=== PATIENT | male | born 1990 | race Caucasian/White ===

== ENCOUNTER 2024-05-13 18:00 | Emergency (ER) | payer BC, OTHER ==
[2024-05-13 18:12] VITALS: BP 127/78; PULSE 71; RESP 18; TEMP 98.6; BMI 28.7
[2024-05-13 18:42] LABS: HEMATOCRIT 47.5 % (35.4-49); HEMOGLOBIN 15.7 G/dL (11.7-16.9); MCH 30.4 pg (25.7-33.7); MCHC 33.1 g/dl (32.0-35.9); MEAN CELL VOLUME 91.8 fl (80-96); MEAN PLT VOLUME 7.4 fl (7.5-11.1); PLATELET COUNT 196.9 10^3/uL (134-434); RBC 5.17 10^6/uL (4.00-5.60); RDW 13.9 % (11.9-15.9)
[2024-05-13 19:11] LABS: ANION GAP 5 mmol/L (4-13); CALCIUM 9.2 mg/dl (8.5-10.1); CHLORIDE 105 mmol/L (98-107); CO2 29 mmol/L (21-32); CREATININE 0.9 mg/dl (0.6-1.3); GLUCOSE,RANDOM 125 mg/dl (74-106); POTASSIUM 3.9 mmol/L (3.5-5.1); SODIUM 139 mmol/L (136-145)
[2024-05-13 19:20] LABS: PLATELET ESTIMATE ADEQUATE
== END 2024-05-13 20:36 | disposition home or self-care (01) ==
LOC: FER 18:00
DX: R00.2 Palpitations (principal); R35.0 Frequency of micturition; R42 Dizziness and giddiness
CPT/HCPCS: 36415; 80048; 81003; 84484; 85027; 87491; 87591; 93005; 99284-25